=== PATIENT | female | born 1945 | race Caucasian/White ===

== ENCOUNTER 2018-08-15 09:29 | Emergency (ER) | payer OTHER, MEDICARE ==
--- NOTE | 2018-08-15 10:51 | EDPHY ---
H & P Stated Complaint: RUQ abd pain Time Seen by Provider: 08/15/18 11:10 HPI/ROS: CHIEF COMPLAINT: RUQ pain, right flank pain HISTORY OF PRESENT ILLNESS: 73 year old female, no significant PMH except recurrent cystitis, presents reporting an abrupt onset of RUQ pain and right flank pain this morning. Well yesterday and earlier in the morning. Does note slight frequency over past 2 days but no urgency. Mild nausea due to the pain, no vomiting, no hematuria. No history of gallstones. No fever. No chest pain. Notes she did go on a long walk yesterday with minimal water. No shortness of breath, palpitations, vomiting, diarrhea, headache, lightheadedness. REVIEW OF SYSTEMS: A comprehensive 10 system review of systems was reviewed and is otherwise negative aside from elements mentioned in the history of present illness and medical decision making. PAST MEDICAL HISTORY: Cystitis SOCIAL HISTORY: Nonsmoker, no alcohol. VITAL SIGNS Reviewed by me. GENERAL: Well-developed, well-nourished, resting comfortably in no respiratory distress. HEENT: Atraumatic. Eyes: No icterus, no injection. Mouth: moist mucous membranes. No erythema or lesions. Neck: supple with no adenopathy. LUNGS: Clear to auscultation bilaterally, no wheezes, rhonchi or rales. CARDIAC: Regular rate and rhythm, no rubs, murmurs or gallops. ABDOMEN: Soft, mild RUQ tenderness, mild right mid quad tenderness. No tenderness at mcburney's point. Nondistended, bowel sounds normal. BACK: Right CVA tenderness. EXTREMITIES: No trauma. No edema. Range of motion is normal throughout. NEURO: Alert and oriented, grossly nonfocal. SKIN: Warm and dry, no rash. PSYCHIATRIC: Normal mentation, no agitation. - Personal History Current Tetanus/Diphtheria Vaccine: Yes Current Tetanus Diphtheria and Acellular Pertussis (TDAP): Yes - Medical/Surgical History Hx Asthma: No Hx Chronic Respiratory Disease: No Hx Diabetes: No Hx Cardiac Disease: No Hx Renal Disease: No Hx Cirrhosis: No Hx Alcoholism: No Hx HIV/AIDS: No Hx Splenectomy or Spleen Trauma: No Other PMH: LUE fx, - Social History Smoking Status: Never smoked Constitutional: Initial Vital Signs Temperature (C) 36.4 C 08/15/18 09:48 Heart Rate 74 08/15/18 09:48 Respiratory Rate 16 08/15/18 09:48 Blood Pressure 117/81 H 08/15/18 09:48 O2 Sat (%) 96 08/15/18 09:48 O2 Delivery Mode Room Air Allergies/Adverse Reactions: No Allergies [NKDA] Allergy (Verified 08/15/18 09:47) Home Medications: Medication Instructions Recorded Cephalexin [Keflex (RX)] 500 mg PO TID 7 Days cap 08/15/18 Ondansetron Odt [Zofran Odt 4 mg 4 mg PO Q6 PRN #8 tab 08/15/18 (RX)] Prolia 08/15/18 Tamsulosin HCl [Flomax] 0.4 mg PO DAILY #7 cap 08/15/18 Medical Decision Making - Diagnostics Imaging Results: CT Abd Pelvis without contrast: Impression: 1. Moderate right hydroureteronephrosis secondary to a 3 mm obstructing calculus in the distal right ureterovesical junction. 2. Possible right renal 2 cm cyst, consider follow-up ultrasound. 3. Degenerative lumbar spine. 4. Atherosclerotic aorta without aneurysm. 5. Small hiatal hernia. Findings and recommendations discussed with Emergency Department physician, Irma Sam MD, at 1145 hour, 08/15/2018. Final report concurs with initial preliminary interpretation. Dictated By: Jesse Tomlinson Imaging: Discussed imaging studies w/ call taker Radiologist ED Course/Re-evaluation: 73 year old with abrupt onset of RUQ and right flank pain. Urine with hematuria, crystals, trace bacteria. WBC 10. Normal renal function. CT consistent with ureteral calculi at UVJ. High degree of obstruction. Fluids, toradol, flomax given. On reexamination, feeling much improved. Discussed diagnosis; understands and comfortable with plan to discharge home and plan of followup. Will dc with instructions regarding flomax, pain meds, anti-inflammatories, and will place on keflex given high degree of obstruction and trace bacteria in urine. Strain urine, follow up with urology. Differential Diagnosis: Differential diagnosis of the patient's flank pain was considered including but not limited to musculoskeletal causes, kidney stone, pyelonephritis, shingles, and intra-abdominal causes such as diverticulitis and appendicitis. - Data Points Laboratory Results: Laboratory Results 08/15/18 11:17 02/14/19 11:17 Microbiology Results: MICROBIOLOGY 08/15/18 09:50 Unspecified Urine Culture - Preliminary One [place] Type Medications Given: Discontinued Medications Sodium Chloride (Ns) 1,000 mls @ 0 mls/hr IV EDNOW ONE; Wide Open PRN Reason: Protocol Stop: 08/15/18 11:19 Last Admin: 08/15/18 11:36 Dose: 1,000 mls Ketorolac Tromethamine (Toradol) 30 mg IVP EDNOW ONE Stop: 08/15/18 12:09 Last Admin: 08/15/18 12:12 Dose: 30 mg Tamsulosin HCl (Flomax) 0.4 mg PO EDNOW ONE Stop: 08/15/18 11:52 Last Admin: 08/15/18 12:12 Dose: 0.4 mg Departure - Departure Disposition: Home, Routine, Self-Care Clinical Impression: Renal colic on right side, Hydronephrosis, Hydroureter Condition: Good Instructions: Kidney Stones (ED), Renal Colic (ED) Additional Instructions: You have a 3 mm kidney stone that is sitting just above your bladder. With any luck, you will pass this into the bladder. Mainstay of therapy is to drink plenty of fluid. You been given a prescription of Zofran to use as needed for any nausea. Take ibuprofen 600 mg every 6-8 hours as needed for moderate pain. This will also help with inflammation. Take Flomax as directed. Take Keflex 500 mg 3 times a day for the next 7 days. Followup with urology as directed below. Strain urine. Return to the emergency department if you have worsening pain, fevers, persistent vomiting, or other concerns. Referrals: NONE *PRIMARY CARE P,. [Primary Care Provider] - As per Instructions Gerry Cat MD [Medical Doctor] - As per Instructions (Please call Dr. Cat and make an appointment for early next week.) Prescriptions: Cephalexin [Keflex (RX)] 500 mg PO TID 7 Days cap Ondansetron Odt [Zofran Odt 4 mg (RX)] 4 mg PO Q6 PRN #8 tab PRN Reason: Nausea Tamsulosin HCl [Flomax] 0.4 mg PO DAILY #7 cap
[2018-08-15] MEDS ORDERED: NS 1,000 ML IV ONE (11:18)
[2018-08-15 11:30] LABS: PLATELET COUNT 290 10^3/uL (150-400)
[2018-08-15] MEDS ORDERED: TAMSULOSIN HCL 0.4 MG CAP PO ONE (11:51)
[2018-08-15] MEDS ORDERED: KETOROLAC 30 MG/1 ML SDV IVP ONE (12:08)
[2018-08-15 12:49] VITALS: BP 140/84
== END 2018-08-15 12:48 | disposition home or self-care (01) ==
DX: N13.0 Hydronephrosis with ureteropelvic junction obstruction (principal); N23 Unspecified renal colic; E86.9 Volume depletion, unspecified
CPT/HCPCS: 74176; 96361; 96374; 99285; J1885

== ENCOUNTER 2018-08-18 11:12 | Emergency (ER) | payer OTHER, MEDICARE ==
--- NOTE | 2018-08-18 11:28 | EDPHY ---
H & P Stated Complaint: fell and hit posterior head on ground, no LOC. No complaints Time Seen by Provider: 08/18/18 11:27 - Personal History Current Tetanus Diphtheria and Acellular Pertussis (TDAP): Yes - Medical/Surgical History Hx Asthma: No Hx Chronic Respiratory Disease: No Hx Diabetes: No Hx Cardiac Disease: No Hx Renal Disease: No Hx Cirrhosis: No Hx Alcoholism: No Hx HIV/AIDS: No Hx Splenectomy or Spleen Trauma: No Other PMH: LUE fx, - Social History Smoking Status: Never smoked Constitutional: Initial Vital Signs Temperature (C) 36.6 C 08/18/18 11:16 Heart Rate 91 08/18/18 11:16 Respiratory Rate 16 08/18/18 11:16 Blood Pressure 155/97 H 08/18/18 11:16 O2 Sat (%) 95 08/18/18 11:16 Allergies/Adverse Reactions: No Allergies [NKDA] Allergy (Verified 08/18/18 11:19) Home Medications: Medication Instructions Recorded Cephalexin [Keflex (RX)] 500 mg PO TID 7 Days cap 08/15/18 Ondansetron Odt [Zofran Odt 4 mg 4 mg PO Q6 PRN #8 tab 08/15/18 (RX)] Prolia 08/15/18 Tamsulosin HCl [Flomax] 0.4 mg PO DAILY #7 cap 08/15/18 Medical Decision Making ED Course/Re-evaluation: CHIEF COMPLAINT: Hit head and fell HISTORY OF PRESENT ILLNESS: The patient is a 73 y/o female complaining of hitting her head secondary to falling yesterday. [place] when she lost her balance in a sand trap and fell. She did hit her head upon impact but denies loss of consciousness. She denies vomiting or dizziness, no retro/anterograde amnesia. Since the fall she has had neck muscle pain but no other pain. She became concerned that she might have a brain bleed and presented to the ED for a CT. No fever, headache, chest pain, shortness of breath, abdominal pain, urinary or bowel complaints, numbness, paresthesias. REVIEW OF SYSTEMS: A comprehensive 10 system review of systems is otherwise negative aside from elements mentioned in the history of present illness and medical decision making. PHYSICAL EXAM: HR, BP, O2 Sat, RR. Temp noted General Appearance: Alert, well hydrated, appropriate, and non-toxic appearing. Head: Atraumatic without scalp tenderness or obvious injury Eyes: Pupils equal, round, reactive to light and accommodation, EOMI, no trauma , no injection. Ears: Clear bilaterally, no perforation, normal landmarks Nose: Atraumatic, no rhinorrhea, clear. Throat: There is no erythema or exudates, no lesions, normal tonsils, mucus membranes moist. Neck: Supple, 2+ carotid upstroke, nontender, no lymphadenopathy. Respiratory: No retractions, no distress, no wheezes, and no accessory muscle use. Lungs are clear to auscultation bilaterally. Cardiovascular: Regular rate and rhythm, no murmurs, rubs, or gallops. Bilateral carotid, radial, dorsalis pedis, and posterior tibial pulses intact. Good capillary refill all extremities. Gastrointestinal: Abdomen is soft, nontender, non-distended, no masses, no rebound, no guarding, no peritoneal signs. Musculoskeletal: Normal active ROM of all extremities, atraumatic. Neurological: Alert, appropriate, and interactive. The patient has normal DTRs and non-focal cranial nerves, motor, sensory, and cerebellar exam. Skin: No rashes, good turgor, no nodules on palpation. Past medical history: Kidney stone Past surgical history: Left upper extremity ORIF Family history: Denies Social history: Lives in [place], retired, single DIAGNOSTICS/PROCEDURES/CRITICAL CARE TIME: Head CT: No acute findings. DIFFERENTIAL DIAGNOSIS: The differential diagnosis for the patient's head injury included but was not limited to concussion, skull fracture, intra-parenchymal contusion, subarachnoid , subdural and epidural hematoma. MEDICAL DECISION MAKING: The patient is a 73 y/o female presenting with hitting her head secondary to falling in a sand trap yesterday. She has a normal exam including a normal neurological exam. Patient does not meet [facility] Head CT or [facility] Head CT requirements. However, after discussing the risks and benefits associated with having a head CT, she would like to proceed with plan for a head CT. 1242: I spoke with Dr. Ochoa, radiologist, who reports that the patient's head CT is negative. 1243: Reassessed patient and discussed imaging findings. I have advised her to follow up with Dr. Treviño if she develops concussion symptoms. Return precautions provided; patient is comfortable with this plan. Departure - Departure Disposition: Home, Routine, Self-Care Clinical Impression: Head injury Qualifiers: Encounter type: initial encounter Qualified Code(s): S09.90XA - Unspecified injury of head, initial encounter Condition: Good Instructions: Concussion (ED), Head Injury (ED) Additional Instructions: 1. Apply ice to sore areas and take 600mg ibuprofen every 6-8 hours or 650mg Tylenol every 4-6 hours for pain for the next few days. 2. Cognitive rest while symptoms are present. Avoid screen time including TV, phones, and computers until symptoms improve. 3. Physical rest while symptoms are present. Avoid any activities that could put you at further risk for a head injury until your symptoms resolve including contact sports, bicycling, etc. This may be 2 weeks or longer. 4. Follow up with Dr. Treviño, head injury specialist, for unimproved symptoms over the next 10-14 days. It's not uncommon to experience fatigue, mood swings, and difficulty concentrating with concussions. 5. Return to the ED for severe headache, weakness or numbness on one side of your body, vision changes, or other worsening of condition. Referrals: Leighann Treviño MD [Medical Doctor] - As per Instructions Report Scribed for: Burton Mendez Report Scribed by: Abimbola Esparza Date of Report: 08/18/18 Time of Report: 11:28
[2018-08-18 13:03] VITALS: BP 142/79
== END 2018-08-18 13:03 | disposition home or self-care (01) ==
DX: S09.90XA Unspecified injury of head, initial encounter (principal); W19.XXXA Unspecified fall, initial encounter; Y92.39 Other specified sports and athletic area as the place of occurrence of the external cause; Y99.9 Unspecified external cause status; Y93.53 Activity, golf